=== PATIENT | male | born 1960 | race Caucasian/White ===

== ENCOUNTER 2018-10-13 08:27 | Inpatient (IN) ==
[2018-10-13] MEDS ORDERED: GLUCAGON 1 MG VIAL IM PRN (10:41)
[2018-10-13] MEDS ORDERED: DEXTROSE 50% 25 GM/50 ML VIAL IV PRN (10:41)
[2018-10-13] MEDS ORDERED: ZOLPIDEM 5 MG TABLET PO PRN (10:48)
[2018-10-13 12:43] LABS: ABG Base Excess 1.6 MMOL/L (-2.5-2.5); ABG HCO3 25.7 MMOL/L (20-26); ABG PCO2 42.3 MM HG (35-48); ABG PH 7.406 (7.35-7.45); ABG PO2 74.2 MM HG (80-95); ABG TCO2 22.2 MMOL/L (23-27); Allen Test Positive; Pt O2 Delivery Device Room Air
[2018-10-13] MEDS: SODIUM CHLORIDE 0.9% 1,000 ML IV SCH (13:17)
[2018-10-13] MEDS ORDERED: CHLORHEXIDINE 4% SOLN 118 ML BOTTLE TOP SCH (15:00)
[2018-10-13] MEDS ORDERED: ATORVASTATIN 20 MG TABLET PO SCH (21:00)
[2018-10-13] MEDS: CHLORHEXIDINE 0.12% ORAL RINSE 60 ML BOTTLE SWISH/SPIT SCH (21:27)
[2018-10-14 04:34] LABS: Basophils # 0.1 10*3/uL (0.0-0.2); Basophils % 0.5 % (0.0-0.8); Eosinophils # 0.3 10*3/uL (0.0-0.87); Eosinophils % 2.9 % (0.00-10.9); Hematocrit 43.7 VOL% (42.0-52.0); Hemoglobin 14.1 GM/DL (14.0-18.0); Immature Granulocytes % 0.3 %; Immature Granulocytes Absolute 0.03 #; Lymphocytes # 2.7 10*3/uL (1.4-4.0); Lymphocytes % 29.2 % (21.2-54.2); Mean Corpuscular HGB Conc 32.3 GM/DL (32-36); Mean Corpuscular Volume 95.4 FL (87-102); Mean Platelet Volume 11.2 FL (9.6-12.0); Monocytes % 10.3 % (1.7-12.7); Neutrophils % 56.8 % (38.7-73.9); Platelet Count 277 T/CUMM (130-400); Red Blood Count 4.58 MC/CUMM (3.8-5.5); Red Cell Distribution Width 12.4 % (9.3-17.3); White Blood Count 9.1 T/CUMM (4-12)
[2018-10-14 04:58] LABS: Albumin 3.6 G/DL (3.4-5.0); Bilirubin,Total 0.5 MG/DL (0.2-1.0); Calcium 8.9 MG/DL (8.5-10.1); Osmolality,Calculated 281.4 MOS/KG (273-304)
[2018-10-14] MEDS: LISINOPRIL 5 MG TABLET PO SCH (08:50)
[2018-10-14] MEDS: CHLORHEXIDINE 0.12% ORAL RINSE 60 ML BOTTLE SWISH/SPIT SCH ×2 (08:50→20:43)
[2018-10-14] MEDS: SODIUM CHLORIDE 0.9% 1,000 ML IV SCH (12:25)
[2018-10-14] MEDS: ATORVASTATIN 20 MG TABLET PO SCH (20:40)
[2018-10-15] MEDS: LISINOPRIL 5 MG TABLET PO SCH (09:57)
[2018-10-15] MEDS: CHLORHEXIDINE 0.12% ORAL RINSE 60 ML BOTTLE SWISH/SPIT SCH ×2 (10:00→21:32)
[2018-10-15] MEDS: SODIUM CHLORIDE 0.9% 1,000 ML IV SCH (11:16)
[2018-10-15] MEDS: CHLORHEXIDINE 4% SOLN 118 ML BOTTLE TOP SCH ×2 (14:59→21:32)
[2018-10-15] MEDS ORDERED: DIAZEPAM 5 MG TABLET PO ONE (21:28)
[2018-10-15] MEDS: ATORVASTATIN 20 MG TABLET PO SCH (21:32)
[2018-10-16] MEDS ORDERED: PAPAVERINE 60 MG/2 ML VIAL ONE (05:22)
[2018-10-16] MEDS ORDERED: VANCOMYCIN 1,000 MG VIAL ONE (05:23)
[2018-10-16] MEDS ORDERED: DIAZEPAM 5 MG TABLET PO ONE (06:00)
[2018-10-16] MEDS ORDERED: FAMOTIDINE 20 MG TABLET PO ONE (06:00)
[2018-10-16] MEDS ORDERED: CEFUROXIME INJ 1,500 MG in SYRINGE 1 EACH IV ONE (06:00)
[2018-10-16] MEDS ORDERED: SUFentanil 250 MCG/5 ML AMP ONE (06:02)
[2018-10-16] MEDS ORDERED: MIDAZOLAM 10 MG/2 ML VIAL ONE (06:03)
[2018-10-16 07:33] LABS: ABG Base Excess 0.6 MMOL/L (-2.5-2.5); ABG Oxygen Saturation 99.8 % (95-100); ABG PCO2 34.8 MM HG (35-48); ABG PH 7.448 (7.35-7.45); ABG TCO2 20.6 MMOL/L (23-27); Glucose Heart Surgery 128 MG/DL (74-106); Hematocrit Heart Surgery 43.4 PERCENT (42-52); Hemoglobin Heart Surgery 14.1 G/DL (14.0-18.0); Ionized Calcium Arterial 1.13 MMOL/L (1.21-1.46); PCO2 Patient Temp Arterial 34.8 MMHG; PH Patient Temp Arterial 7.448; Patient Temperature 37 CELCIUS; Potassium Heart/CVR 4.3 MMOL/L (3.5-5.1); Sodium Heart/CVR 137 MMOL/L (135-145)
[2018-10-16 08:02] LABS: Apearance,Urine CLEAR (Clear); Bacteria,Urine Occasional /HPF (Few); Bilirubin,Urine Negative (Negative); Blood, Urine Moderate mg/dL (Negative); Glucose,Urine (UA) Negative (Negative); Ketones,Urine Negative (Negative); Mucus,Urine Occasional /LPF (Occasional); Nitrite,Urine Negative (Negative); Protein,Urine Negative; RBC,Urine 61 /HPF (0-4); Urine Color Yellow (Yellow); Urine Specific Gravity 1.014 (1.001-1.035); Urine Urobilinogen < 2.0 EU/DL (0.2-1.0); WBC,Urine 7 /HPF (0-6)
[2018-10-16] MEDS ORDERED: NITROPRUSSIDE 50 MG/2 ML VIAL ONE (08:17)
[2018-10-16] MEDS ORDERED: PHENYLEPHRINE DRIP 40 MG/250 ML PREMIX IV ONE (08:17)
[2018-10-16] MEDS ORDERED: POTASSIUM CHLORIDE RIDER 100 ML IV ONE (08:18)
[2018-10-16] MEDS ORDERED: CALCIUM CHLORIDE 1,000 MG/10 ML SYRINGE IV ONE (08:18)
[2018-10-16] MEDS ORDERED: SODIUM BICARBONATE 50 MEQ/50 ML VIAL IV ONE ×2 (08:18→10:26)
[2018-10-16] MEDS ORDERED: ALBUMIN 5% 12.5 GM/250 ML VIAL IV ONE (08:19)
[2018-10-16 08:57] LABS: Hematocrit Heart Surgery 29.8 PERCENT (42-52); Hemoglobin Heart Surgery 9.6 G/DL (14.0-18.0); PCO2 Patient Temp Venous 33.9 MM HG; PH Patient Temp Venous 7.457; PO2 Patient Temp Venous 41.3 MM HG; Potassium Heart/CVR 5.3 MMOL/L (3.5-5.1); VBG Base Excess 0.5 MEQ/L (0-4); VBG HCO3 24.7 MEQ/L (24-28); VBG Oxygen Saturation 86.2 %; VBG PCO2 39.2 MMHG (41-51); VBG PH 7.413; VBG PO2 50.7 MMHG (17-40)
[2018-10-16 09:32] LABS: Hematocrit Heart Surgery 33.1 PERCENT (42-52); Hemoglobin Heart Surgery 10.7 G/DL (14.0-18.0); PCO2 Patient Temp Venous 30.8 MM HG; PH Patient Temp Venous 7.478; PO2 Patient Temp Venous 40.4 MM HG; Potassium Heart/CVR 4.9 MMOL/L (3.5-5.1); VBG HCO3 24.2 MEQ/L (24-28); VBG Oxygen Saturation 86.3 %; VBG PCO2 35.6 MMHG (41-51); VBG PH 7.434; VBG PO2 49.6 MMHG (17-40)
[2018-10-16 10:20] LABS: ABG Base Excess -0.1 MMOL/L (-2.5-2.5); ABG HCO3 24.4 MMOL/L (20-26); ABG PCO2 31.6 MM HG (35-48); ABG PH 7.469 (7.35-7.45); ABG TCO2 20.4 MMOL/L (23-27); Glucose Heart Surgery 242 MG/DL (74-106); Hematocrit Heart Surgery 34.2 PERCENT (42-52); Hemoglobin Heart Surgery 11.1 G/DL (14.0-18.0); Ionized Calcium Arterial 1.27 MMOL/L (1.21-1.46); PCO2 Patient Temp Arterial 31.6 MMHG; PH Patient Temp Arterial 7.469; Patient Temperature 37 CELCIUS; Potassium Heart/CVR 4.2 MMOL/L (3.5-5.1); Sodium Heart/CVR 133 MMOL/L (135-145)
[2018-10-16] MEDS ORDERED: PROTAMINE SULFATE 250 MG/25 ML VIAL IV ONE (10:26)
[2018-10-16] MEDS ORDERED: DEXTROSE 5% KCL 20 MEQ 20 MEQ/1,000 ML BAG IV ONE (10:26)
[2018-10-16] MEDS ORDERED: ALBUMIN 25% 25 GM/100 ML VIAL IV ONE (10:26)
[2018-10-16] MEDS ORDERED: MAGNESIUM SULFATE 5 GM/10 ML VIAL IV ONE (10:26)
[2018-10-16] MEDS ORDERED: MANNITOL 100 GM/500 ML BAG IV ONE (10:26)
[2018-10-16] MEDS ORDERED: HEPARIN 10,000 UNIT/10 ML VIAL ONE (10:27)
[2018-10-16] MEDS ORDERED: FUROSEMIDE 20 MG/2 ML VIAL ONE (10:27)
[2018-10-16] MEDS ORDERED: PROTAMINE SULFATE 50 MG/5 ML VIAL IV ONE (10:27)
[2018-10-16] MEDS ORDERED: methylPREDNISolone SOD SUC 1,000 MG/8 ML VIAL ONE (10:27)
[2018-10-16] MEDS ORDERED: THROMBIN TOPICAL (RECOMBINANT) 5,000 UNIT VIAL TOP ONE (10:28)
[2018-10-16] MEDS: SODIUM CHLORIDE 0.9% 1,000 ML IV SCH (11:06)
[2018-10-16] MEDS ORDERED: CALCIUM CHLORIDE 1,000 MG/10 ML VIAL IV ONE (11:12)
[2018-10-16] MEDS ORDERED: SEVOFLURANE 1 UNIT/15 MINUTE INH ONE (11:12)
[2018-10-16] MEDS ORDERED: HEPARIN/NACL 0.9% 2 UNITS/ML 500 ML IV ONE (11:12)
[2018-10-16] MEDS ORDERED: PHENYLEPHRINE DRIP 20 MG/250 ML PREMIX IV ONE (11:12)
[2018-10-16] MEDS ORDERED: SODIUM CHLORIDE 0.9% 2,000 ML IV ONE (11:13)
[2018-10-16] MEDS ORDERED: AMINOCAPROIC ACID 5,000 MG/20 ML VIAL ONE (11:13)
[2018-10-16] MEDS ORDERED: ETOMIDATE 40 MG/20 ML VIAL IV ONE (11:13)
[2018-10-16] MEDS ORDERED: VECURONIUM 10 MG VIAL IV ONE (11:13)
[2018-10-16] MEDS ORDERED: ePHEDrine 50 MG/ML AMP ONE (11:13)
[2018-10-16] MEDS ORDERED: SODIUM CHLORIDE 0.9% 100 ML IV ONE (11:13)
[2018-10-16] MEDS ORDERED: SODIUM CHLORIDE 0.9% 250 ML IV ONE (11:13)
[2018-10-16] MEDS ORDERED: ESMOLOL 100 MG/10 ML VIAL IV ONE (11:13)
[2018-10-16] MEDS ORDERED: LACTATED RINGERS 1,000 ML IV ONE (11:13)
[2018-10-16] MEDS ORDERED: NITROGLYCERIN DRIP 50 MG/250 ML BOTTLE IV ONE (11:13)
[2018-10-16] MEDS ORDERED: MINERAL OIL/PETROLATUM OPH OINT 3.5 GM TUBE ONE (11:13)
[2018-10-16] MEDS ORDERED: MAGNESIUM SULF RIDER 4 GM in PREMIX 1 EACH IV PRN (11:34)
[2018-10-16] MEDS ORDERED: POTASSIUM CHLORIDE RIDER 10 MEQ in PREMIX 1 EACH IV PRN (11:34)
[2018-10-16] MEDS ORDERED: PHENYLEPHRINE DRIP 40 MG/250 ML PREMIX IV PRN (11:34)
[2018-10-16] MEDS ORDERED: MORPHINE 10 MG/1 ML VIAL IV PRN (11:34)
[2018-10-16] MEDS ORDERED: CALCIUM CHLORIDE 1,000 MG/10 ML SYRINGE IV PRN (11:34)
[2018-10-16] MEDS ORDERED: INSULIN REGULAR 100 UNIT/ML IV PRN (11:34)
[2018-10-16] MEDS ORDERED: ONDANSETRON 4 MG/2 ML VIAL IV PRN (11:34)
[2018-10-16] MEDS ORDERED: SODIUM CHLORIDE 0.45% 1,000 ML IV SCH ×2 (11:34)
[2018-10-16] MEDS ORDERED: ACETAMINOPHEN 650 MG SUPP RECTAL PRN (11:34)
[2018-10-16] MEDS ORDERED: INSULIN REGULAR DRIP 100 ML IV SCH (11:34)
[2018-10-16] MEDS ORDERED: MORPHINE 4 MG/1 ML VIAL IV PRN (11:34)
[2018-10-16] MEDS ORDERED: MIDAZOLAM 10 MG/2 ML VIAL IV PRN (11:34)
[2018-10-16] MEDS ORDERED: INSULIN REGULAR 100 UNIT/ML IV ONE (11:34)
[2018-10-16] MEDS ORDERED: DEXTROSE 50% 25 GM/50 ML VIAL IV PRN ×2 (11:34)
[2018-10-16] MEDS ORDERED: MAGNESIUM SULF RIDER 2 GM in PREMIX 1 EACH IV PRN (11:34)
[2018-10-16] MEDS ORDERED: MIDAZOLAM 2 MG/2 ML VIAL IV PRN (11:34)
[2018-10-16] MEDS ORDERED: VECURONIUM 10 MG VIAL IV PRN ×2 (11:34)
[2018-10-16] MEDS ORDERED: NITROPRUSSIDE 100 MG in DEXTROSE 5% 250 ML IV PRN (11:34)
[2018-10-16] MEDS ORDERED: LACTATED RINGERS 250 ML IV PRN (11:34)
[2018-10-16 11:42] LABS: ABG Base Excess 1.7 MMOL/L (-2.5-2.5); ABG HCO3 25.9 MMOL/L (20-26); ABG Oxygen Saturation 97.8 % (95-100); ABG PCO2 28.1 MM HG (35-48); ABG PH 7.528 (7.35-7.45); ABG PO2 86.7 MM HG (80-95); ABG TCO2 20.3 MMOL/L (23-27); Glucose Heart Surgery 222 MG/DL (74-106); Hematocrit Heart Surgery 39.8 PERCENT (42-52); Hemoglobin Heart Surgery 12.9 G/DL (14.0-18.0); Potassium Heart/CVR 3.8 MMOL/L (3.5-5.1)
[2018-10-16 11:44] LABS: Basophils # 0.1 10*3/uL (0.0-0.2); Basophils % 0.4 % (0.0-0.8); Eosinophils # 0.1 10*3/uL (0.0-0.87); Eosinophils % 0.4 % (0.00-10.9); Hematocrit 37.1 VOL% (42.0-52.0); Hemoglobin 12.3 GM/DL (14.0-18.0); Immature Granulocytes % 0.7 %; Immature Granulocytes Absolute 0.11 #; Lymphocytes # 1.5 10*3/uL (1.4-4.0); Lymphocytes % 10.3 % (21.2-54.2); Mean Corpuscular HGB Conc 33.2 GM/DL (32-36); Mean Corpuscular Volume 94.2 FL (87-102); Mean Platelet Volume 10.9 FL (9.6-12.0); Monocytes % 5.4 % (1.7-12.7); Neutrophils % 82.8 % (38.7-73.9); Platelet Count 242 T/CUMM (130-400); Red Blood Count 3.94 MC/CUMM (3.8-5.5); Red Cell Distribution Width 12.2 % (9.3-17.3); White Blood Count 14.7 T/CUMM (4-12)
[2018-10-16 11:55] LABS: INR 1.2; PT Patient Result 13.3 SECS; Partial Thromboplastin Time 29.4 SECS (0-40)
[2018-10-16 12:06] LABS: CKMB % 8.3 %
[2018-10-16 12:14] LABS: Troponin I 3.01 NG/ML (0.00-0.045)
[2018-10-16 12:27] LABS: Albumin 3.8 G/DL (3.4-5.0); Bilirubin,Total 1.5 MG/DL (0.2-1.0); Calcium 9.1 MG/DL (8.5-10.1); Osmolality,Calculated 288.3 MOS/KG (273-304); Total Protein 6.5 G/DL (6.4-8.3)
[2018-10-16 13:08] LABS: ABG Base Excess 1.8 MMOL/L (-2.5-2.5); ABG PCO2 28.9 MM HG (35-48); ABG PH 7.521 (7.35-7.45); ABG PO2 89.4 MM HG (80-95); ABG TCO2 20.4 MMOL/L (23-27); Glucose Heart Surgery 218 MG/DL (74-106); Hematocrit Heart Surgery 40.5 PERCENT (42-52); Hemoglobin Heart Surgery 13.2 G/DL (14.0-18.0); Potassium Heart/CVR 4.3 MMOL/L (3.5-5.1)
[2018-10-16] MEDS: KETOROLAC 30 MG/1 ML VIAL IV SCH ×2 (13:28→18:35)
[2018-10-16 13:55] LABS: ABG Base Excess 0.4 MMOL/L (-2.5-2.5); ABG HCO3 24.8 MMOL/L (20-26); ABG PCO2 34.1 MM HG (35-48); ABG PH 7.451 (7.35-7.45); ABG PO2 98.7 MM HG (80-95); ABG TCO2 20.8 MMOL/L (23-27); Glucose Heart Surgery 212 MG/DL (74-106); Hematocrit Heart Surgery 39.2 PERCENT (42-52); Hemoglobin Heart Surgery 12.7 G/DL (14.0-18.0)
[2018-10-16] MEDS: ALBUMIN 5% 12.5 GM in PREMIX 1 EACH IV PRN ×3 (14:19→16:57)
[2018-10-16] MEDS: LISINOPRIL 5 MG TABLET PO SCH (15:36)
[2018-10-16] MEDS: CHLORHEXIDINE 0.12% ORAL RINSE 60 ML BOTTLE SWISH/SPIT SCH ×2 (15:36→20:51)
[2018-10-16] MEDS: CHLORHEXIDINE 4% SOLN 118 ML BOTTLE TOP SCH (15:36)
[2018-10-16] MEDS: POTASSIUM CHLORIDE RIDER 20 MEQ in PREMIX 1 EACH IV PRN (15:48)
[2018-10-16 16:30] LABS: ABG Base Excess -2.3 MMOL/L (-2.5-2.5); ABG HCO3 22.5 MMOL/L (20-26); ABG Oxygen Saturation 99.1 % (95-100); ABG PCO2 37.8 MM HG (35-48); ABG PH 7.381 (7.35-7.45); ABG TCO2 20.1 MMOL/L (23-27); Glucose Heart Surgery 182 MG/DL (74-106); Hematocrit Heart Surgery 34.5 PERCENT (42-52); Hemoglobin Heart Surgery 11.2 G/DL (14.0-18.0); Potassium Heart/CVR 4.1 MMOL/L (3.5-5.1)
[2018-10-16] MEDS ORDERED: LACTATED RINGERS 1,000 ML IV PRN (17:09)
[2018-10-16 18:01] LABS: ABG Base Excess -2.2 MMOL/L (-2.5-2.5); ABG HCO3 22.6 MMOL/L (20-26); ABG Oxygen Saturation 99.6 % (95-100); ABG PCO2 26.3 MM HG (35-48); ABG PH 7.488 (7.35-7.45); ABG TCO2 17.7 MMOL/L (23-27); Glucose Heart Surgery 181 MG/DL (74-106); Hemoglobin Heart Surgery 11.3 G/DL (14.0-18.0); Potassium Heart/CVR 4.3 MMOL/L (3.5-5.1)
[2018-10-16] MEDS: CEFUROXIME INJ 1,500 MG in SYRINGE 1 EACH IV SCH (19:34)
[2018-10-16 20:03] LABS: ABG HCO3 21.9 MMOL/L (20-26); ABG Oxygen Saturation 97.5 % (95-100); ABG PCO2 39.3 MM HG (35-48); ABG TCO2 19.9 MMOL/L (23-27); Glucose Heart Surgery 175 MG/DL (74-106); Hematocrit Heart Surgery 34.4 PERCENT (42-52); Hemoglobin Heart Surgery 11.2 G/DL (14.0-18.0); Potassium Heart/CVR 4.4 MMOL/L (3.5-5.1)
[2018-10-16 20:39] LABS: CKMB % 6.2 %
[2018-10-16 20:48] LABS: Troponin I 3.08 NG/ML (0.00-0.045)
[2018-10-16] MEDS ORDERED: FUROSEMIDE 40 MG/4 ML VIAL IV PRN (21:20)
[2018-10-17] MEDS: KETOROLAC 30 MG/1 ML VIAL IV SCH ×5 (00:27→21:14)
[2018-10-17 01:07] LABS: ABG Base Excess -0.6 MMOL/L (-2.5-2.5); ABG HCO3 23.8 MMOL/L (20-26); ABG Oxygen Saturation 95.9 % (95-100); ABG PCO2 38.4 MM HG (35-48); ABG PH 7.411 (7.35-7.45); ABG PO2 95.1 MM HG (80-95); Glucose Heart Surgery 100 MG/DL (74-106); Hemoglobin Heart Surgery 12.1 G/DL (14.0-18.0); Potassium Heart/CVR 4.5 MMOL/L (3.5-5.1)
[2018-10-17 04:25] LABS: ABG Base Excess -0.2 MMOL/L (-2.5-2.5); ABG HCO3 24.2 MMOL/L (20-26); ABG PCO2 39.7 MM HG (35-48); ABG PH 7.397 (7.35-7.45); ABG PO2 86.8 MM HG (80-95); ABG TCO2 21.8 MMOL/L (23-27); Glucose Heart Surgery 114 MG/DL (74-106); Hematocrit Heart Surgery 36.1 PERCENT (42-52); Hemoglobin Heart Surgery 11.7 G/DL (14.0-18.0); Potassium Heart/CVR 4.4 MMOL/L (3.5-5.1)
[2018-10-17 04:34] LABS: Basophils % 0.2 % (0.0-0.8); Hematocrit 34.3 VOL% (42.0-52.0); Hemoglobin 11.1 GM/DL (14.0-18.0); Immature Granulocytes % 0.6 %; Lymphocytes % 5.9 % (21.2-54.2); Mean Corpuscular HGB Conc 32.4 GM/DL (32-36); Mean Corpuscular Volume 96.3 FL (87-102); Mean Platelet Volume 11.3 FL (9.6-12.0); Neutrophils % 87.3 % (38.7-73.9); Platelet Count 247 T/CUMM (130-400); Red Blood Count 3.56 MC/CUMM (3.8-5.5); Red Cell Distribution Width 12.6 % (9.3-17.3); White Blood Count 17.4 T/CUMM (4-12)
[2018-10-17 04:52] LABS: Bilirubin,Direct 0.27 MG/DL (0.0-0.20); Calcium 8.4 MG/DL (8.5-10.1); Osmolality,Calculated 284.3 MOS/KG (273-304); Total Protein 6.9 G/DL (6.4-8.3)
[2018-10-17 04:55] LABS: CKMB % 7.4 %
[2018-10-17 04:56] LABS: Troponin I 3.72 NG/ML (0.00-0.045)
[2018-10-17] MEDS: POTASSIUM CHLORIDE RIDER 20 MEQ in PREMIX 1 EACH IV PRN (06:01)
[2018-10-17] MEDS: CEFUROXIME INJ 1,500 MG in SYRINGE 1 EACH IV SCH (06:35)
[2018-10-17] MEDS ORDERED: GLUCAGON 1 MG VIAL IM PRN ×3 (06:38→09:32)
[2018-10-17] MEDS ORDERED: INSULIN REGULAR 100 UNIT/ML SUBCUT SCH (08:00)
[2018-10-17] MEDS: CHLORHEXIDINE 0.12% ORAL RINSE 60 ML BOTTLE SWISH/SPIT SCH ×3 (09:22→21:15)
[2018-10-17] MEDS ORDERED: ONDANSETRON 4 MG/2 ML VIAL IV PRN (09:32)
[2018-10-17] MEDS ORDERED: ZALEPLON 5 MG CAPSULE PO PRN (09:32)
[2018-10-17] MEDS ORDERED: SODIUM CHLOR 0.45% KCL 20 MEQ 20 MEQ/1,000 ML BAG IV SCH (09:32)
[2018-10-17] MEDS ORDERED: MAGNESIUM SULF RIDER 2 GM in PREMIX 1 EACH IV PRN (09:32)
[2018-10-17] MEDS ORDERED: DEXTROSE 50% 25 GM/50 ML VIAL IV PRN (09:32)
[2018-10-17] MEDS ORDERED: MAGNESIUM SULF RIDER 4 GM in PREMIX 1 EACH IV PRN (09:32)
[2018-10-17] MEDS ORDERED: ACETAMINOPHEN 325 MG TABLET PO PRN (09:32)
[2018-10-17] MEDS ORDERED: ALUMINUM/MAGNES/SIMETH MAX STR 30 ML UDCUP PO PRN (09:32)
[2018-10-17] MEDS ORDERED: DEXTROSE 10% 250 ML BAG IV PRN (09:32)
[2018-10-17] MEDS ORDERED: CEFUROXIME INJ 1,500 MG in SODIUM CHLORIDE 0.9% 100 ML IV ONE (09:35)
[2018-10-17] MEDS: ASPIRIN EC 325 MG TABLET PO SCH (10:14)
[2018-10-17] MEDS: LISINOPRIL/HCTZ 10-12.5 MG TABLET PO SCH (10:14)
[2018-10-17] MEDS: FERROUS SULFATE 325 MG TABLET PO SCH (10:15)
[2018-10-17] MEDS: PANTOPRAZOLE 40 MG TABLET PO SCH (10:15)
[2018-10-17] MEDS: DOCUSATE SODIUM 100 MG CAPSULE PO SCH (10:15)
[2018-10-17] MEDS: SIMVASTATIN 20 MG TABLET PO SCH (10:15)
[2018-10-17] MEDS ORDERED: CEFUROXIME INJ 1,500 MG in SYRINGE 1 EACH IV ONE (19:21)
[2018-10-18] MEDS: KETOROLAC 30 MG/1 ML VIAL IV SCH ×2 (03:42→09:07)
[2018-10-18] MEDS ORDERED: FUROSEMIDE 40 MG/4 ML VIAL IV ONE (06:00)
[2018-10-18 06:37] LABS: Basophils % 0.2 % (0.0-0.8); Hematocrit 31.6 VOL% (42.0-52.0); Hemoglobin 10.1 GM/DL (14.0-18.0); Immature Granulocytes % 0.9 %; Immature Granulocytes Absolute 0.18 #; Lymphocytes # 1.7 10*3/uL (1.4-4.0); Lymphocytes % 8.5 % (21.2-54.2); Mean Corpuscular Volume 98.1 FL (87-102); Mean Platelet Volume 12.3 FL (9.6-12.0); Monocytes % 7.7 % (1.7-12.7); Neutrophils % 82.7 % (38.7-73.9); Platelet Count 235 T/CUMM (130-400); Red Blood Count 3.22 MC/CUMM (3.8-5.5); Red Cell Distribution Width 12.9 % (9.3-17.3); White Blood Count 19.8 T/CUMM (4-12)
[2018-10-18 06:42] LABS: Albumin 3.4 G/DL (3.4-5.0); Bilirubin,Direct 0.19 MG/DL (0.0-0.20); Bilirubin,Indirect 0.4 MG/DL (0.0-1.0); Bilirubin,Total 0.6 MG/DL (0.2-1.0); CKMB % 4.5 %; Calcium 8.6 MG/DL (8.5-10.1); Osmolality,Calculated 288.5 MOS/KG (273-304); Total Protein 6.4 G/DL (6.4-8.3)
[2018-10-18 06:45] LABS: Troponin I 2.38 NG/ML (0.00-0.045)
[2018-10-18] MEDS: CHLORHEXIDINE 0.12% ORAL RINSE 60 ML BOTTLE SWISH/SPIT SCH ×2 (09:07→20:29)
[2018-10-18] MEDS: ASPIRIN EC 325 MG TABLET PO SCH (09:07)
[2018-10-18] MEDS: DOCUSATE SODIUM 100 MG CAPSULE PO SCH (09:07)
[2018-10-18] MEDS: LISINOPRIL/HCTZ 10-12.5 MG TABLET PO SCH (09:07)
[2018-10-18] MEDS: PANTOPRAZOLE 40 MG TABLET PO SCH (09:07)
[2018-10-18] MEDS: FERROUS SULFATE 325 MG TABLET PO SCH (09:07)
[2018-10-18] MEDS: SIMVASTATIN 20 MG TABLET PO SCH (09:07)
[2018-10-19] MEDS: oxyCODONE/ACETAMINOPHEN 5-325 MG TABLET PO PRN (01:19)
[2018-10-19 05:50] LABS: Basophils % 0.1 % (0.0-0.8); Eosinophils % 0.2 % (0.00-10.9); Hematocrit 30.4 VOL% (42.0-52.0); Hemoglobin 9.6 GM/DL (14.0-18.0); Immature Granulocytes % 0.6 %; Immature Granulocytes Absolute 0.08 #; Lymphocytes # 2.5 10*3/uL (1.4-4.0); Lymphocytes % 17.3 % (21.2-54.2); Mean Corpuscular HGB Conc 31.6 GM/DL (32-36); Monocytes % 10.2 % (1.7-12.7); Neutrophils % 71.6 % (38.7-73.9); Platelet Count 232 T/CUMM (130-400); Red Blood Count 3.07 MC/CUMM (3.8-5.5); Red Cell Distribution Width 12.6 % (9.3-17.3); White Blood Count 14.5 T/CUMM (4-12)
[2018-10-19 06:28] LABS: Alanine Aminotransferase 29 U/L (16-61); Albumin 3.3 G/DL (3.4-5.0); Alkaline Phosphatase 66 U/L (45-117); Aspartate Amino Transferase 19 U/L (0-37); Bilirubin,Indirect 0.9 MG/DL (0.0-1.0); Total Protein 6.2 G/DL (6.4-8.3)
[2018-10-19 06:30] LABS: Albumin 3.3 G/DL (3.4-5.0); Bilirubin,Total 0.8 MG/DL (0.2-1.0); Calcium 8.5 MG/DL (8.5-10.1); Osmolality,Calculated 271.7 MOS/KG (273-304); Total Protein 5.7 G/DL (6.4-8.3)
[2018-10-19] MEDS ORDERED: ceFAZolin 1,000 MG in SYRINGE 1 EACH IV ONE (08:42)
[2018-10-19] MEDS ORDERED: ceFAZolin 1,000 MG VIAL IRRIG ONE (08:42)
[2018-10-19] MEDS ORDERED: TISSUE ADHESIVE 1 EACH APPLICATOR TOP ONE (09:24)
[2018-10-19] MEDS ORDERED: ceFAZolin 1,000 MG VIAL ONE (09:24)
[2018-10-19] MEDS ORDERED: HEPARIN/NACL 0.9% 2 UNITS/ML 500 ML IV ONE (09:24)
[2018-10-19] MEDS ORDERED: LIDOCAINE 1% 20 ML VIAL ONE (09:24)
[2018-10-19] MEDS ORDERED: MIDAZOLAM 2 MG/2 ML VIAL ONE (09:25)
[2018-10-19] MEDS ORDERED: fentaNYL 100 MCG/2 ML VIAL ONE (09:25)
[2018-10-19] MEDS ORDERED: diphenhydrAMINE 50 MG/1 ML VIAL ONE (10:02)
[2018-10-19] MEDS: DOCUSATE SODIUM 100 MG CAPSULE PO SCH (11:41)
[2018-10-19] MEDS: METOPROLOL SUCCINATE XL 25 MG TABLET PO SCH (11:41)
[2018-10-19] MEDS: PANTOPRAZOLE 40 MG TABLET PO SCH (11:42)
[2018-10-19] MEDS: CHLORHEXIDINE 0.12% ORAL RINSE 60 ML BOTTLE SWISH/SPIT SCH ×2 (11:42→20:49)
[2018-10-19] MEDS: SIMVASTATIN 20 MG TABLET PO SCH (11:42)
[2018-10-19] MEDS: ASPIRIN EC 325 MG TABLET PO SCH (11:42)
[2018-10-19] MEDS: FERROUS SULFATE 325 MG TABLET PO SCH (11:42)
[2018-10-19] MEDS: ceFAZolin 1,000 MG in SYRINGE 1 EACH IV SCH (18:03)
[2018-10-20] MEDS: ceFAZolin 1,000 MG in SYRINGE 1 EACH IV SCH (01:07)
[2018-10-20 05:10] LABS: Calcium 8.5 MG/DL (8.5-10.1); Osmolality,Calculated 269.4 MOS/KG (273-304)
[2018-10-20] MEDS: PANTOPRAZOLE 40 MG TABLET PO SCH (08:49)
[2018-10-20] MEDS: METOPROLOL SUCCINATE XL 25 MG TABLET PO SCH (08:49)
[2018-10-20] MEDS: FERROUS SULFATE 325 MG TABLET PO SCH (08:49)
[2018-10-20] MEDS: DOCUSATE SODIUM 100 MG CAPSULE PO SCH (08:49)
[2018-10-20] MEDS: SIMVASTATIN 20 MG TABLET PO SCH (08:49)
[2018-10-20] MEDS: ASPIRIN EC 325 MG TABLET PO SCH (08:49)
[2018-10-20] MEDS: CHLORHEXIDINE 0.12% ORAL RINSE 60 ML BOTTLE SWISH/SPIT SCH ×2 (08:50→21:51)
[2018-10-21 06:15] LABS: Basophils % 0.3 % (0.0-0.8); Eosinophils # 0.4 10*3/uL (0.0-0.87); Eosinophils % 2.9 % (0.00-10.9); Hematocrit 30.7 VOL% (42.0-52.0); Hemoglobin 10.2 GM/DL (14.0-18.0); Immature Granulocytes % 0.8 %; Immature Granulocytes Absolute 0.12 #; Lymphocytes # 2.3 10*3/uL (1.4-4.0); Lymphocytes % 15.5 % (21.2-54.2); Mean Corpuscular HGB Conc 33.2 GM/DL (32-36); Mean Corpuscular Volume 94.8 FL (87-102); Mean Platelet Volume 11.3 FL (9.6-12.0); Monocytes % 11.2 % (1.7-12.7); Neutrophils % 69.3 % (38.7-73.9); Platelet Count 300 T/CUMM (130-400); Red Blood Count 3.24 MC/CUMM (3.8-5.5); Red Cell Distribution Width 12.3 % (9.3-17.3); White Blood Count 14.6 T/CUMM (4-12)
[2018-10-21 06:48] LABS: Alanine Aminotransferase 76 U/L (16-61); Alkaline Phosphatase 114 U/L (45-117); Aspartate Amino Transferase 55 U/L (0-37); Bilirubin,Indirect 0.9 MG/DL (0.0-1.0); Blood Urea Nitrogen 20 MG/DL (7-18); Calcium 8.5 MG/DL (8.5-10.1); Glucose 105 MG/DL (74-106); Osmolality,Calculated 257.2 MOS/KG (273-304); Total Protein 6.5 G/DL (6.4-8.3)
[2018-10-21 06:49] LABS: Troponin I 0.566 NG/ML (0.00-0.045)
[2018-10-21] MEDS: FERROUS SULFATE 325 MG TABLET PO SCH (09:00)
[2018-10-21] MEDS: DOCUSATE SODIUM 100 MG CAPSULE PO SCH (09:00)
[2018-10-21] MEDS: CHLORHEXIDINE 0.12% ORAL RINSE 60 ML BOTTLE SWISH/SPIT SCH ×2 (09:00→20:56)
[2018-10-21] MEDS: SIMVASTATIN 20 MG TABLET PO SCH (09:00)
[2018-10-21] MEDS: METOPROLOL SUCCINATE XL 50 MG TABLET PO SCH (09:00)
[2018-10-21] MEDS: ASPIRIN EC 325 MG TABLET PO SCH (09:01)
[2018-10-21] MEDS: PANTOPRAZOLE 40 MG TABLET PO SCH (09:01)
[2018-10-21] MEDS: LISINOPRIL 5 MG TABLET PO SCH (10:38)
[2018-10-21 11:50] LABS: Apearance,Urine Slightly Hazy (Clear); Bilirubin,Urine Negative (Negative); Blood, Urine Moderate mg/dL (Negative); Glucose,Urine (UA) Negative (Negative); Ketones,Urine Negative (Negative); Nitrite,Urine Negative (Negative); Protein,Urine Negative; RBC,Urine 13 /HPF (0-4); Urine Color Straw (Yellow); Urine Specific Gravity 1.005 (1.001-1.035); Urine Urobilinogen < 2.0 EU/DL (0.2-1.0); WBC,Urine 1 /HPF (0-6)
[2018-10-22 05:08] LABS: Basophils % 0.3 % (0.0-0.8); Eosinophils # 0.4 10*3/uL (0.0-0.87); Eosinophils % 2.7 % (0.00-10.9); Hematocrit 29.5 VOL% (42.0-52.0); Hemoglobin 9.9 GM/DL (14.0-18.0); Immature Granulocytes % 0.9 %; Immature Granulocytes Absolute 0.13 #; Lymphocytes # 2.1 10*3/uL (1.4-4.0); Mean Corpuscular HGB Conc 33.6 GM/DL (32-36); Mean Corpuscular Volume 93.4 FL (87-102); Mean Platelet Volume 11.1 FL (9.6-12.0); Monocytes % 11.1 % (1.7-12.7); Platelet Count 359 T/CUMM (130-400); Red Blood Count 3.16 MC/CUMM (3.8-5.5); Red Cell Distribution Width 12.1 % (9.3-17.3); White Blood Count 14.6 T/CUMM (4-12)
[2018-10-22 05:58] LABS: Alanine Aminotransferase 105 U/L (16-61); Albumin 2.6 G/DL (3.4-5.0); Alkaline Phosphatase 125 U/L (45-117); Aspartate Amino Transferase 68 U/L (0-37); Bilirubin,Indirect 0.5 MG/DL (0.0-1.0); Blood Urea Nitrogen 15 MG/DL (7-18); Calcium 8.2 MG/DL (8.5-10.1); Glucose 113 MG/DL (74-106); Osmolality,Calculated 248.8 MOS/KG (273-304); Total Protein 6.4 G/DL (6.4-8.3)
[2018-10-22 06:00] LABS: Troponin I 0.385 NG/ML (0.00-0.045)
[2018-10-22] MEDS: CHLORHEXIDINE 0.12% ORAL RINSE 60 ML BOTTLE SWISH/SPIT SCH ×2 (09:01→20:29)
[2018-10-22] MEDS: LISINOPRIL 5 MG TABLET PO SCH (09:02)
[2018-10-22] MEDS: PANTOPRAZOLE 40 MG TABLET PO SCH (09:02)
[2018-10-22] MEDS: SIMVASTATIN 20 MG TABLET PO SCH (09:02)
[2018-10-22] MEDS: FERROUS SULFATE 325 MG TABLET PO SCH (09:02)
[2018-10-22] MEDS: METOPROLOL SUCCINATE XL 50 MG TABLET PO SCH (09:02)
[2018-10-22] MEDS: ASPIRIN EC 325 MG TABLET PO SCH (09:02)
[2018-10-22] MEDS: DOCUSATE SODIUM 100 MG CAPSULE PO SCH (09:03)
[2018-10-22] MEDS: HYDROcodone/CHLORPHENIRAMINE ER 5 ML UDCUP PO PRN (15:18)
[2018-10-23] MEDS: LISINOPRIL 5 MG TABLET PO SCH (08:51)
[2018-10-23] MEDS: ASPIRIN EC 325 MG TABLET PO SCH (08:51)
[2018-10-23] MEDS: METOPROLOL SUCCINATE XL 50 MG TABLET PO SCH (08:52)
[2018-10-23] MEDS: DOCUSATE SODIUM 100 MG CAPSULE PO SCH (08:52)
[2018-10-23] MEDS: FERROUS SULFATE 325 MG TABLET PO SCH (08:52)
[2018-10-23] MEDS: PANTOPRAZOLE 40 MG TABLET PO SCH (08:52)
[2018-10-23] MEDS: POTASSIUM CHLORIDE 20 MEQ TABLET PO PRN ×2 (08:52→12:13)
[2018-10-23] MEDS: SIMVASTATIN 20 MG TABLET PO SCH (08:52)
[2018-10-23] MEDS: CHLORHEXIDINE 0.12% ORAL RINSE 60 ML BOTTLE SWISH/SPIT SCH ×2 (08:53→20:39)
[2018-10-23] MEDS: HYDROcodone/CHLORPHENIRAMINE ER 5 ML UDCUP PO PRN ×2 (09:05→20:39)
[2018-10-24 05:14] LABS: Basophils % 0.3 % (0.0-0.8); Eosinophils # 0.3 10*3/uL (0.0-0.87); Eosinophils % 2.3 % (0.00-10.9); Hematocrit 26.8 VOL% (42.0-52.0); Immature Granulocytes Absolute 0.25 #; Lymphocytes # 2.3 10*3/uL (1.4-4.0); Lymphocytes % 17.7 % (21.2-54.2); Mean Corpuscular HGB Conc 33.6 GM/DL (32-36); Mean Platelet Volume 10.3 FL (9.6-12.0); Monocytes % 10.1 % (1.7-12.7); Neutrophils % 67.6 % (38.7-73.9); Platelet Count 384 T/CUMM (130-400); Red Blood Count 2.85 MC/CUMM (3.8-5.5); Red Cell Distribution Width 12.2 % (9.3-17.3); White Blood Count 12.7 T/CUMM (4-12)
[2018-10-24 05:36] LABS: Calcium 8.6 MG/DL (8.5-10.1); Osmolality,Calculated 263.7 MOS/KG (273-304)
[2018-10-24] MEDS: SIMVASTATIN 20 MG TABLET PO SCH (08:41)
[2018-10-24] MEDS: ASPIRIN EC 325 MG TABLET PO SCH (08:41)
[2018-10-24] MEDS: LISINOPRIL 5 MG TABLET PO SCH (08:41)
[2018-10-24] MEDS: DOCUSATE SODIUM 100 MG CAPSULE PO SCH (08:42)
[2018-10-24] MEDS: METOPROLOL SUCCINATE XL 50 MG TABLET PO SCH (08:42)
[2018-10-24] MEDS: FERROUS SULFATE 325 MG TABLET PO SCH (08:42)
[2018-10-24] MEDS: PANTOPRAZOLE 40 MG TABLET PO SCH (08:42)
[2018-10-24] MEDS: CHLORHEXIDINE 0.12% ORAL RINSE 60 ML BOTTLE SWISH/SPIT SCH ×2 (08:44→20:41)
[2018-10-24] MEDS: MAGNESIUM HYDROXIDE SUSP 30 ML UDCUP PO PRN (13:25)
[2018-10-24] MEDS: HYDROcodone/CHLORPHENIRAMINE ER 5 ML UDCUP PO PRN ×2 (13:25→20:41)
[2018-10-25 05:07] LABS: Basophils # 0.1 10*3/uL (0.0-0.2); Basophils % 0.4 % (0.0-0.8); Eosinophils # 0.2 10*3/uL (0.0-0.87); Eosinophils % 1.7 % (0.00-10.9); Hematocrit 26.7 VOL% (42.0-52.0); Hemoglobin 8.8 GM/DL (14.0-18.0); Immature Granulocytes % 1.9 %; Immature Granulocytes Absolute 0.24 #; Lymphocytes # 2.1 10*3/uL (1.4-4.0); Lymphocytes % 16.8 % (21.2-54.2); Mean Platelet Volume 9.9 FL (9.6-12.0); Monocytes % 8.8 % (1.7-12.7); Neutrophils % 70.4 % (38.7-73.9); Platelet Count 415 T/CUMM (130-400); Red Blood Count 2.81 MC/CUMM (3.8-5.5); Red Cell Distribution Width 12.5 % (9.3-17.3); White Blood Count 12.5 T/CUMM (4-12)
[2018-10-25 05:41] LABS: Calcium 8.2 MG/DL (8.5-10.1); Osmolality,Calculated 260.8 MOS/KG (273-304)
[2018-10-25] MEDS: MAGNESIUM HYDROXIDE SUSP 30 ML UDCUP PO PRN (05:49)
[2018-10-25] MEDS: DOCUSATE SODIUM 100 MG CAPSULE PO SCH (09:46)
[2018-10-25] MEDS: FERROUS SULFATE 325 MG TABLET PO SCH (09:46)
[2018-10-25] MEDS: METOPROLOL SUCCINATE XL 50 MG TABLET PO SCH (09:46)
[2018-10-25] MEDS: CHLORHEXIDINE 0.12% ORAL RINSE 60 ML BOTTLE SWISH/SPIT SCH ×2 (09:47→21:16)
[2018-10-25] MEDS: LISINOPRIL 5 MG TABLET PO SCH (09:47)
[2018-10-25] MEDS: ASPIRIN EC 325 MG TABLET PO SCH (09:47)
[2018-10-25] MEDS: SIMVASTATIN 20 MG TABLET PO SCH (09:47)
[2018-10-25] MEDS: PANTOPRAZOLE 40 MG TABLET PO SCH (09:47)
[2018-10-25] MEDS: oxyCODONE/ACETAMINOPHEN 5-325 MG TABLET PO PRN (18:15)
[2018-10-26 06:02] LABS: Basophils % 0.3 % (0.0-0.8); Eosinophils # 0.2 10*3/uL (0.0-0.87); Eosinophils % 1.4 % (0.00-10.9); Hematocrit 27.6 VOL% (42.0-52.0); Hemoglobin 8.9 GM/DL (14.0-18.0); Immature Granulocytes % 1.1 %; Immature Granulocytes Absolute 0.13 #; Mean Corpuscular HGB Conc 32.2 GM/DL (32-36); Mean Corpuscular Volume 96.2 FL (87-102); Mean Platelet Volume 9.6 FL (9.6-12.0); Monocytes % 8.3 % (1.7-12.7); Neutrophils % 71.9 % (38.7-73.9); Platelet Count 443 T/CUMM (130-400); Red Blood Count 2.87 MC/CUMM (3.8-5.5); Red Cell Distribution Width 12.7 % (9.3-17.3); White Blood Count 11.5 T/CUMM (4-12)
[2018-10-26 06:33] LABS: Calcium 8.5 MG/DL (8.5-10.1); Osmolality,Calculated 268.2 MOS/KG (273-304)
[2018-10-26 08:28] VITALS: BP 110/63
[2018-10-26] MEDS: METOPROLOL SUCCINATE XL 50 MG TABLET PO SCH (09:16)
[2018-10-26] MEDS: LISINOPRIL 5 MG TABLET PO SCH (09:19)
[2018-10-26] MEDS: ASPIRIN EC 325 MG TABLET PO SCH (09:19)
[2018-10-26] MEDS: PANTOPRAZOLE 40 MG TABLET PO SCH (09:20)
[2018-10-26] MEDS: FERROUS SULFATE 325 MG TABLET PO SCH (09:20)
[2018-10-26] MEDS: SIMVASTATIN 20 MG TABLET PO SCH (09:21)
[2018-10-26] MEDS: DOCUSATE SODIUM 100 MG CAPSULE PO SCH (09:21)
[2018-10-26] MEDS: CHLORHEXIDINE 0.12% ORAL RINSE 60 ML BOTTLE SWISH/SPIT SCH (09:21)
== END 2018-10-26 11:21 | disposition home or self-care (01) | DRG 235 ==
LOC: N.TELES 11:03 → N.CVR 10-16 08:17 → N.TELES 10-17 11:41 → N.ICU 10-19 07:36 → N.TELES 10-19 17:31